=== PATIENT | female | born 1990 | race Caucasian/White ===

== ENCOUNTER 2017-12-30 08:11 | Emergency (ER) | payer BC ==
[2017-12-30] MEDS ORDERED: Lactated Ringers 1,000 ML IV SCH (08:45)
[2017-12-30 08:47] LABS: CHLORIDE,CL 104 mEq/L (98-106); SODIUM,NA 140 mEq/L (136-145)
--- NOTE | 2017-12-30 09:16 | EDM.PDOC ---
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 Harrington. She was treated for the ectopic . They were monitoring her beta Hcg levels, and they have been decreasing. She reports she was told that if she has any bleeding, to come to the ER right away. She reports that this morning she started having some vaginal bleeding. She reports it is a moderate amount, "like a normal period." She reports she also has some abdominal pain, described as cramping, worse on her left side. Denies any N/V/D, urinary symptoms. Does report that she was planning to go to [place], but on the way here she had an episode where she got shaky and light headed, so they stopped here. She denies any other concerns. Onset: Today Duration: Constant Location: Reports: Abdomen Quality: Reports: Other (crampy) Severity: Moderate Improves with: Reports: None Worsens with: Reports: None Associated Symptoms: Reports: No Other Symptoms. Denies: Confusion, Chest Pain , Cough, cough w sputum, Diaphoresis, Fever/Chills, Headaches, Loss of Appetite , Malaise, Nausea/Vomiting, Rash, Seizure, Shortness of Breath, Syncope, Weakness - Related Data Allergies Allergy/AdvReac Type Severity Reaction Status Date / Time Penicillins Allergy Rash Verified 12/30/17 08:23 Home Meds: Home Meds . 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 ED EXAM - Physical Exam Exam: See Below Exam Limited By: No Limitations General Appearance: Alert, WD/WN, Anxious Head: Atraumatic, Normocephalic Neck: Normal Inspection, Supple, Non-Tender, Full Range of Motion Respiratory/Chest: No Respiratory Distress, Lungs Clear, Normal Breath Sounds, No Accessory Muscle Use, Chest Non-Tender Cardiovascular: Normal Peripheral Pulses, Regular Rate, Rhythm, No Edema, No Gallop, No JVD, No Murmur, No Rub GI/Abdominal Exam: Normal Bowel Sounds, Soft, No Organomegaly, No Distention, No Abnormal Bruit, No Mass, Pelvis Stable, Tender (left lower) (Female) Exam: Vaginal Bleeding Back Exam: Normal Inspection, Full Range of Motion. No: CVA Tenderness (L), CVA Tenderness (R) Psychiatric: Anxious, Tearful Course - Vital Signs Last Recorded V/S: Last Vital Signs Temp 97.1 F 12/30/17 09:10 Pulse 69 12/30/17 09:10 Resp 20 12/30/17 09:10 BP 114/47 L 12/30/17 09:10 Pulse Ox 99 12/30/17 09:10 - Orders/Labs/Meds Labs: Laboratory Tests 12/30/17 12/30/17 12/30/17 Range/Units 08:30 08:30 08:30 WBC 6.8 (5.0-10.0) 10^3/uL RBC 4.45 (4.00-5.50) 10^6/uL Hgb 13.4 (12.0-16.0) g/dL Hct 39.2 (37.0-47.0) % MCV 88.1 (82.0-94.0) fL MCH 30.1 (27.0-32.0) pg MCHC 34.2 (33.0-38.0) g/dL RDW Coeff of Gio 12.1 (11.0-15.0) % Plt Count 325 (150-400) 10^3/uL Neut % (Auto) 55.1 (35-85) % Lymph % (Auto) 34.5 (10-55) % [place] % (Auto) 6.3 (0-16) % Eos % (Auto) 3.7 (0-5) % Baso % (Auto) 0.4 (0-3) % Neut # (Auto) 3.73 (1.80-7.00) 10^3/uL Lymph # (Auto) 2.34 (1.00-4.80) 10^3/uL [place] # (Auto) 0.43 (0.00-0.80) 10^3/uL Eos # (Auto) 0.25 (0.00-0.45) 10^3/uL Baso # (Auto) 0.03 10^3/uL Sodium 140 (136-145) mEq/L Potassium 4.1 (3.5-5.0) mEq/L Chloride 104 (98-106) mEq/L Carbon Dioxide 27 (21-32) mmol/L BUN 13 (7-18) mg/dL Creatinine 0.9 (0.6-1.0) mg/dL Est Cr Clr Drug Dosing 72.95 mL/min Estimated GFR (MDRD) > 60 (>=60) mL/min Glucose 118 H (75-99) mg/dL Calcium 8.9 (8.4-10.1) mg/dL Beta HCG, Quant 2600 H (0-4) mIU/mL Meds: Medications Discontinued Medications Generic Name Dose Route Start Last Admin Trade Name Freq PRN Reason Stop Dose Admin Lactated Ringer's 1,000 mls @ 150 mls/hr 12/30/17 08:45 12/30/17 08:51 Ringers, Lactated IV 150 mls/hr ASDIRECTED COURT Administration - Re-Assessments/Exams Free Text/Narrative Re-Assessment/Exam: Discussed case with Dr. Harrington, patient's PCP, who recommends we transfer her for surgical consultation. Discussed case with Dr. Cesar SANTA, who accepted the patient for transfer. Discussed that she would like admit her for observation. Discussed stable labs with patient. Beta-HCG level is a send out so unable to determine if it has continued to decrease. Discussed plan with patient. Discussed risks and benefits of transfer via private vehicle. Risks include worsening of condition enroute, , or vehicle crash. Benefits include surgical consultation and OBGYN specialty. Risks of nontransfer include worsening of condition and nonsurgical specialty. Benefits of transfer include staying close to home and familiar environment. Patient voiced understanding and agreed to transfer. Departure - Departure Time of Disposition: 09:15 Disposition: DC/Tfer to [facility] 02 Condition: Good Clinical Impression: Ectopic Qualifiers: Location of ectopic : unspecified location Intrauterine status: without intrauterine Qualified Code(s): O00.90 - Unspecified ectopic without intrauterine - Discharge Information Instructions: Pelvic Pain, Female, Ectopic , [id number] Forms: ED Department Discharge Additional Instructions[facility] Go [place] [facility] Guerrero is accepting OBGYN
== END 2017-12-30 09:30 ==
LOC: CC.ED 08:11
DX: O00.90 Unspecified ectopic pregnancy without intrauterine pregnancy (principal); Z88.0 Allergy status to penicillin
CPT/HCPCS: 36415; 80048; 84702; 85025; 96360; 99284; J7120

== ENCOUNTER 2022-11-08 02:48 | Emergency (ER) | payer BC | END 2022-11-08 03:44 | disposition home or self-care (01) | LOC: CC.ED 02:48 | DX: M25.511 Pain in right shoulder (principal); M25.512 Pain in left shoulder; Z88.0 Allergy status to penicillin | CPT/HCPCS: 99283 ==